=== PATIENT | male | born 1955 | race Caucasian/White ===

== ENCOUNTER → 2017-04-30 | Outpatient (CLI) | payer OTHER ==
[~2017-04-30] MED LIST: ASPI-428 PO; ATOR-24 PO; B-CO1TAB29 PO; BCTROWC EXT; CHOL100027 PO; EPP3/2 IM; FLAX100024 PO; GABA-112 PO; GABA-113 PO; LISI-791 PO; LORA-741 PO; META1TAB22 PO; METH4PAK4 PO; MISCCAP80 PO; OMEGCAP2 PO; SAW160TA PO; SYMIN160 INH; ZOLP12.5 PO; konsyl PO
--- NOTE | 2017-04-30 13:22 | DIAGNOSTIC IMAGING REPORT ---
CHEST 2 VIEWS ROUTINE HISTORY: R50.9 Fever [id number] COMPARISON: Chest 02/26/2013. FINDINGS: The lungs are clear. Cardiac silhouette is normal in size. No pleural effusions. No pneumothorax. IMPRESSION: No acute process. Electronically signed by: Asael Melgar M.D. 04/30/2017 1:21 PM Dictated Date/Time: 04/30/2017 1:17 PM
[2017-04-30 17:22] LABS: BASO % 0.6 %; BASO ABS # 0.04 K/uL (0-0.2); COMPLETE YES; EOS % 3.5 %; HEMATOCRIT 41.5 % (42-52); IG% 0.3 %; LYMPH % 33.2 %; MEAN CELL VOLUME 82.2 fL (80-100); MEAN CORPUSCULAR HEMOGLOBIN 28.1 pg (25-34); MEAN CORPUSCULAR HGB CONC 34.2 g/dl (32-36); MEAN PLATELET VOLUME 9.6 fL (7.4-10.4); MONO % 10.2 %; NEUT % 52.2 %; PLATELET COUNT 260 K/uL (130-400); RED BLOOD COUNT 5.05 M/uL (4.7-6.1); WHITE BLOOD COUNT 6.93 K/uL (4.8-10.8)
[2017-04-30 17:39] LABS: ALT/SGPT 36 U/L (12-78); AST/SGOT 22 U/L (15-37); BLOOD UREA NITROGEN 10 mg/dl (7-18); BUN/CREATININE RATIO 12.5 (10-20); CARBON DIOXIDE 28 mmol/L (21-32); CHLORIDE 100 mmol/L (98-107); CREATININE 0.78 mg/dl (0.60-1.40); GLUCOSE 93 mg/dl (70-99); POTASSIUM 4.2 mmol/L (3.5-5.1); SODIUM 134 mmol/L (136-145)
[2017-04-30 17:42] LABS: ALKALINE PHOSPHATASE 65 U/L (45-117)
== END | disposition home or self-care (01) ==
LOC: C.RADBC 12:36
PROVIDERS: ATTEND Physician Assistant
DX: R50.9 Fever, unspecified (principal)

== ENCOUNTER → 2017-05-23 | Outpatient (CLI) | payer OTHER ==
[2017-05-23 11:28] LABS: CHOLESTEROL/HDL RATIO 1.9; PROSTATE SPECIFIC ANTIGEN 2.26 ng/ml (0.000-4.000)
== END | disposition home or self-care (01) ==
LOC: C.LABBC 08:47
PROVIDERS: ATTEND Internal Medicine
DX: Z00.00 Encounter for general adult medical examination without abnormal findings (principal); E78.5 Hyperlipidemia, unspecified

== ENCOUNTER → 2017-12-27 | Outpatient (CLI) | payer OTHER ==
[~2017-12-27] MED LIST changes: +ADVIN10/60 INH; -EPP3/2 IM; +KONSYL PO; +LISI-729 PO; -META1TAB22 PO; -METH4PAK4 PO; -SYMIN160 INH
[2017-12-27 10:48] LABS: BASO % 0.4 %; BASO ABS # 0.02 K/uL (0-0.2); EOS % 3.8 %; HEMATOCRIT 42.5 % (42-52); HEMOGLOBIN 14.3 g/dL (14.0-18.0); IG# 0.01 K/uL (0.00-0.02); LYMPH % 39.5 %; LYMPH ABS # 2.06 K/uL (1.2-3.4); MEAN CELL VOLUME 81.7 fL (80-100); MEAN CORPUSCULAR HEMOGLOBIN 27.5 pg (25-34); MEAN CORPUSCULAR HGB CONC 33.6 g/dl (32-36); MEAN PLATELET VOLUME 9.3 fL (7.4-10.4); MONO % 8.4 %; MONO ABS # 0.44 K/uL (0.11-0.59); NEUT % 47.7 %; NEUT ABS # 2.49 K/uL (1.4-6.5); PLATELET COUNT 224 K/uL (130-400); RED CELL DISTRIBUTION WIDTH CV 13.1 % (11.5-14.5); RED CELL DISTRIBUTION WIDTH SD 39.4 fL (36.4-46.3); WHITE BLOOD COUNT 5.22 K/uL (4.8-10.8)
[2017-12-27 10:55] LABS: BLOOD UREA NITROGEN 12 mg/dl (7-18); CALCIUM 9.1 mg/dl (8.5-10.1); CARBON DIOXIDE 29 mmol/L (21-32); CREATININE 0.87 mg/dl (0.60-1.40); GLUCOSE 97 mg/dl (70-99); SODIUM 138 mmol/L (136-145)
== END | disposition home or self-care (01) ==
LOC: C.LAB 09:26
PROVIDERS: ATTEND Surgery
DX: Z01.810 Encounter for preprocedural cardiovascular examination (principal)

== ENCOUNTER → 2018-01-09 | Day surgery (SDC) | payer OTHER ==
[2017-12-26 10:32] VITALS: BMI 26.0
--- NOTE | 2017-12-27 09:53 | PAT Medication Instructions ---
Service Date Dec 27, 2017. Current Home Medication List Aspirin (Ecotrin Low Strength), 162 MG PO QAM Atorvastatin (Lipitor), 40 MG PO QAM B-Complex Vitamins (Vitamin B-Complex), 1 TAB PO QAM Cholecalciferol (Vitamin D 1000 Unit), 5,000 INTER.UNIT PO QAM Flaxseed (Linseed) (Flaxseed Oil), 1,000 MG PO QAM Fluticasone Prop/Salmeterol (Advair Diskus 100/50 60 Dose), 1 PUFF INH BID PRN for PRN Gabapentin (Neurontin), 900 MG PO HS Gabapentin (Neurontin), 100 MG PO Q6H Lisinopril (Zestril), 10 MG PO QAM Lisinopril (Zestril), 5 MG PO HS Lorazepam (Ativan), 0.5 MG PO Q4H Mupirocin (Bactroban 2% Oint), 1 APPLN EXT [place]-3 Fatty Acids (Fish Oil), 1,200 MG PO BID Probiotic Product (Probiotic), 1 CAP PO QAM [place] ([place]ren[place] Repens) (Saw [place]), 320 MG PO QAM Zolpidem Tartrate (Ambien Cr), 12.5 MG PO HS PRN [Konsyl], 15 ML PO QAM [konsyl], 3 TSP PO DAILY Medication Instructions For Your Scheduled Surgery - Hold the following medications starting 12/27/17:: Flaxseed (Linseed) (Flaxseed Oil), 1,000 MG PO QAM [place]-3 Fatty Acids (Fish Oil), 1,200 MG PO BID [place] (Serenoa Repens) (Saw [place]), 320 MG PO QAM [Konsyl], 15 ML PO QAM [konsyl], 3 TSP PO DAILY - Hold the following medications 24 hours prior to surgery: Mupirocin (Bactroban 2% Oint), 1 APPLN EXT - Hold the following medications the morning of surgery: B-Complex Vitamins (Vitamin B-Complex), 1 TAB PO QAM Cholecalciferol (Vitamin D 1000 Unit), 5,000 INTER.UNIT PO QAM Lisinopril (Zestril), 10 MG PO QAM Probiotic Product (Probiotic), 1 CAP PO QAM - Take the following medications the morning of surgery with a sip of water: Aspirin (Ecotrin Low Strength), 162 MG PO QAM (to continue per patient) Atorvastatin (Lipitor), 40 MG PO QAM Fluticasone Prop/Salmeterol (Advair Diskus 100/50 60 Dose), 1 PUFF INH BID PRN for PRN (if needed) Gabapentin (Neurontin), 100 MG PO Q6H Lorazepam (Ativan), 0.5 MG PO Q4H - Take the following medications as scheduled the night before surgery: Fluticasone Prop/Salmeterol (Advair Diskus 100/50 60 Dose), 1 PUFF INH BID PRN for PRN (if needed) Gabapentin (Neurontin), 100 MG PO Q6H Gabapentin (Neurontin), 900 MG PO HS Lisinopril (Zestril), 5 MG PO HS Zolpidem Tartrate (Ambien Cr), 12.5 MG PO HS PRN (if needed) If you have any questions please call us at [phone] or [phone] or [phone]
[~2018-01-09] VITALS: Ht 167.6 cm; Wt 75.0 kg
[~2018-01-09] MED LIST changes: +ATROPINE SULFATE 0.1 MG/ML 5ML SYR IV PRN; +BACITRACIN 50000 UNIT VIAL ONE; +BUPIVACAINE 0.5 % 5 MG/1 ML PF 10ML VIAL ONE; +CEFAZOLIN SOD 1 GM VIAL ONE; +DEXAMETHASONE SOD INJ 4 MG/ML VIAL ONE; +EpHEDrine SULFATE INJ 50 MG/ML AMP IV PRN; +FENTANYL CITRATE INJ 50 MCG/1 ML 2 ML VIAL ONE; +FLUMAZENIL 0.1 MG/1 ML 10 ML VIAL IV PRN; +HYDROmorphone INJ 1 MG/ML SYR IV PRN; +IBUP-103 PO; +LABETALOL HCL IV 5 MG/ML 20ML IV PRN; +LACTATED RINGER'S 1000ML 1,000 ML IV SCH; +LIDOCAINE HCL 2% 2 ML VIAL (20MG/ML) ONE; +MIDAZOLAM HCL 1 MG/ML 2ML VIAL ONE; +MoRPHine SULFATE 2 MG/ML CARP IV PRN; +NALOXONE HCL 0.4 MG/1 ML VIAL/CARP IV PRN; +ONDANSETRON INJ 2 MG/ML 2 ML VIAL IV PRN; +ONDANSETRON INJ 2 MG/ML 2 ML VIAL ONE; +OXYC-57 PO; +OXYCODONE/ACETAMINOPHEN 5-325 TAB PO PRN; +PROMETHAZINE HCL INJ 12.5 MG in SODIUM CHLORIDE 0.9% 50ML 50 ML IV PRN; +PROPOFOL IV EMULSION 10 MG/ML 20 ML VIAL ONE
[2018-01-09 07:08] VITALS: BP 93/70; PULSE 63; TEMP 36.7; O2SAT 100; Ht 167.6 cm; Wt 75.0 kg
--- NOTE | 2018-01-09 07:45 | History & Physical Bridge Note ---
H&P Re-Evaluation Bridge Note: I have examined the patient, reviewed the History & Physical and in the interval since the performance of the History & Physical I have noted the following changes of clinical significance: No changes noted all questions answered, at bedside, pt marked
--- NOTE | 2018-01-09 08:54 | [facility] Post Operative Brief Note ---
Immediate Operative Summary Operative Date Jan 09, 2018. Pre-Operative Diagnosis left inguinal hernia Post-Operative Diagnosis left direct inguinal hernia Procedure(s) Performed Left Open Direct Inguinal Hernia Repair With Mesh MARLEX Surgeon Dr. El Dawson Sort Supervisor Surgeon(s) Marshal Blanco PA-C Estimated Blood Loss 5ml Findings See Below POST OP Specimens none per surgeon Anesthesia Type General
--- NOTE | 2018-01-09 09:14 | Discharge Instructions ---
Discharge Instructions Date of Service Jan 09, 2018. Visit Reason for Visit: Left Inguinal Hernia Discharge Discharge Diagnosis / Problem: ingunal hernia repair Discharge Goals Goal(s): Decrease discomfort Activity Recommendations Activity Limitations: as noted below Lifting Limitations: no more than 10 pounds Shower/Bathe: tomorrow Driving or Machine Use: resume 3 days after discharge Anesthesia . Post Anesthesia Instructions: If you have had General Anesthesia or IV Sedation: * Do not drive today. * Resume driving when surgeon permits. * Do not make important decisions or sign legal documents today. * Call surgeon for: 1. Temperature elevations greater than 101 degrees F. 2. Uncontrollable pain. 3. Excessive bleeding. 4. Persistent nausea and vomiting. 5. Medication intolerance (nausea, vomiting or rash). * For nausea and vomiting use only clear liquids such as: tea, soda, bouillon until nausea subsides, then gradually increase diet as tolerated. * If you have any concerns or questions, call your surgeon's office. If physician is unavailable and it is an emergency, call 911 or go to the nearest emergency room. . Instructions / Follow-Up Instructions / Follow-Up Dr. Dawson in 1 week, call [phone] if you have any questions or need to schedule an appt Ice left groin off and on alternating every 20 min until bedtime Diet Recommendations Recommended Home Diet: no limitations Procedures Procedures Performed: Left Open Direct Inguinal Hernia Repair With Mesh MARLEX Pending Studies Studies pending at discharge: no Medical Emergencies . Who to Call and When: Medical Emergencies: If at any time you feel your situation is an emergency, please call 911 immediately. . Non-Emergent Contact Non-Emergency issues call your: Surgeon Call Non-Emergent contact if: you have a fever, temperature is above 101.5, your pain is not controlled, wound has increased redness, wound has increased pain, you have any medication questions . . "Provider Documentation" section prepared by Marshal Blanco. .
--- NOTE | 2018-01-09 09:53 | Anesthesiology Progress Note ---
Anesthesia Post Op Note Date & Time Jan 09, 2018 at 09:53 Vital Signs Pain Intensity: 0 Vital Signs Past 12 Hours Date Time Temp Pulse Resp B/P (MAP) Pulse Ox O2 Delivery O2 Flow Rate FiO2 01/09/18 09:45 36.4 55 16 118/72 99 Room Air 01/09/18 09:35 56 18 106/75 97 Room Air 01/09/18 09:25 58 18 115/68 100 Oxymask 5 01/09/18 09:15 61 18 117/74 100 Oxymask 5 01/09/18 09:09 36.2 72 18 115/68 100 Oxymask 10 01/09/18 07:08 36.7 63 20 93/70 (78) 100 Room Air Notes Mental Status: alert / awake / arousable, participated in evaluation Pt Amnestic to Procedure: Yes Nausea / Vomiting: adequately controlled Pain: adequately controlled Airway Patency, RR, SpO2: stable & adequate BP & HR: stable & adequate Hydration State: stable & adequate Anesthetic Complications: no major complications apparent
[2018-01-09 09:55] VITALS: BP 112/67; PULSE 56; TEMP 36.3; O2SAT 100
--- NOTE | 2018-01-09 10:05 | OPERATIVE REPORT ---
DATE OF OPERATION: 01/09/2018 SURGEON: El Dawson MD ROLL HAND: Marshal Blanco PA-C. PREOPERATIVE DIAGNOSIS: Left inguinal hernia. POSTOPERATIVE DIAGNOSIS: Left direct inguinal hernia. PROCEDURE: Open repair of left indirect inguinal hernia with Marlex mesh reinforcement. SUMMARY: The patient was brought into the operating room under LMA anesthesia. The left lower quadrant was prepped with Betadine scrubbing solution and properly draped. Systemic antibiotics were given. Marcaine 0.5% with epinephrine was used to infiltrate 2 fingerbreadths medial anterior superior iliac crest and the skin wheel was raised and the needle was deepened down to underneath the external oblique fascia, more local was used. An incision was made parallel to the inguinal ligament approximately 3 inches long, deepened through subcutaneous tissue. Vessels and subQ were ligated with 2-0 silk suture. We took our dissection down to the external oblique. The external oblique was then, more local was used, and opened along the course of its fibers to the external ring. External oblique fascia was a little frail in the inferior portion as it went down towards the shelving portion. At this point, once we opened to the external ring, we identified the nerve, which was easily identifiable and was dissected out and retracted out of the operative field after it was put underneath hemostats. The cord and its structures were then elevated. Once we elevated over a [place] drain, we were able to identify the patient had no indirect hernia, but had a direct hernia, which is protruding just near the symphysis pubis. The hernia itself extended and protruded into the canal approximately an inch. The opening itself was about a finger length. At this point, once we had this freed up, we closed it primarily with 3-0 interrupted silk sutures and then I placed an onlay Marlex mesh onto the symphysis pubis, conjoined tendon superiorly, and shelving portion of the inguinal ligament inferiorly reconstructing the external ring. Once this had been performed, the mesh was a little bit loose when inspected. We used more local underneath the mesh, closed the external oblique fascia on top of the cord and its structures. Of note, before we closed the internal ring, we placed the nerve along the cord. As we identified the nerve further down, we were able to see that it is just up to the superior aspect of the external ring that the nerve divided into 2 branches, one was going through the external oblique fascia. We freed that up, did not enter the branches, we left everything intact. We then closed the external oblique fascia reconstructing the internal ring. Some of the fibers were frail in this area in the inferior aspect towards the shelving portion of the external oblique, reinforced with interrupted 3-0 silk and appeared secure. The external ring was reconstructed to accommodate the tip of my finger. Subcutaneous tissue was closed with 3-0 Dexon and arjun for skin edges. Dressing was applied. The procedure was tolerated well by the patient. Estimated blood loss approximately 5 mL. The patient was taken to recovery room in good condition. I attest to the content of the Intraoperative Record and any orders documented therein. Any exceptions are noted below. MTDD
[2018-01-09 10:25] VITALS: BP 121/72; PULSE 63; TEMP 36.4; O2SAT 100
== END | disposition home or self-care (01) ==
LOC: C.ACU 06:48
PROVIDERS: ATTEND Surgery
DX: K40.90 Unilateral inguinal hernia, without obstruction or gangrene, not specified as recurrent (principal); J45.909 Unspecified asthma, uncomplicated; I10 Essential (primary) hypertension; E78.5 Hyperlipidemia, unspecified; Z88.2 Allergy status to sulfonamides; Z88.1 Allergy status to other antibiotic agents; I25.10 Atherosclerotic heart disease of native coronary artery without angina pectoris; Z87.891 Personal history of nicotine dependence; Z79.899 Other long term (current) drug therapy; Z79.82 Long term (current) use of aspirin